=== PATIENT | female | born 1995 | race Caucasian/White ===

== ENCOUNTER → 2016-09-24 | Outpatient (CLI) | payer BC ==
--- OUTSIDE RECORDS SUMMARY | 2016-09-24 15:43 | XMS REPORT | Continuity of Care Document ---
Author Author [facility] Organization [facility] Address Unknown Phone Unavailable Care Team Providers Care Residential Sales Executive Name Role Phone Vicki Castillo PCP [phone] Source Comments Some departments are not documenting in the electronic medical record. If you do not see the information that you expected, contact Release of Information in the Health Information Management department at [phone] for further assistance in locating additional records.[facility] Active Allergies and Adverse Reactions No Known Allergies Current Medications Prescription Sig. Disp. Refills Start End Date Status Date AMOXICILLIN PO Take by mouth. Active cephalexin (KEFLEX) 250 Take 2 Caps by mouth 42 0 05/12/20 Active mg capsule Three Times Daily. 08 Active Problems Not on file Social History Tobacco Use Types Packs/Day Years Used Date Never Smoker Alcohol Use Drinks/Week oz/Week Comments No Last Filed Vital Signs Vital Sign Reading Time Taken Blood Pressure 105/61 05/12/2008 1:52 PM CDT Pulse 68 05/12/2008 1:52 PM CDT Temperature 36.7 C (98.1 F) 05/12/2008 1:52 PM CDT Respiratory Rate - - Height - - Weight 52 kg (114 lb 10.2 oz) 05/12/2008 1:52 PM CDT Body Mass Index - - Oxygen Saturation 99% 05/12/2008 1:52 PM CDT Plan of Care Health Maintenance Due Date Last Done Comments Physical (Comprehensive) 2001 Exam Hpv Vaccines (#1) 2005 Pertussis Vaccine 2005 Tetanus Vaccine 2011 Cervical Cancer Screening 2015 Influenza Vaccine 04/23/2016 Results from Last 3 Months Not on file
[2016-09-24 15:54] LABS: BASOPHILS % (AUTO) 0 % (0-10); EOSINOPHILS # (AUTO) 0.2 10^3/uL (0.0-0.3); EOSINOPHILS % (AUTO) 2 % (0-10); LYMPHOCYTES # (AUTO) 1.9 X 10^3 (1.0-4.0); LYMPHOCYTES % (AUTO) 27 % (12-44); MEAN CORPUSCULAR HEMOGLOBIN 30 PG (25-34); MEAN CORPUSCULAR HGB CONC 33 G/DL (32-36); MEAN CORPUSCULAR VOLUME 92 FL (80-99); MEAN PLATELET VOLUME 11.2 FL (7.4-10.4); MONOCYTES # (AUTO) 0.6 X 10^3 (0.0-1.0); MONOCYTES % (AUTO) 8 % (0-12); NEUTROPHILS # (AUTO) 4.5 X 10^3 (1.8-7.8); NEUTROPHILS % (AUTO) 62 % (42-75); PLATELET COUNT 173 10^3/uL (130-400); RED BLOOD COUNT 4.36 10^6/uL (4.35-5.85); RED CELL DISTRIBUTION WIDTH 12.6 % (10.0-14.5); WHITE BLOOD COUNT 7.1 10^3/uL (4.3-11.0)
[2016-09-24 16:19] LABS: BAND NEUTROPHILS 1 %; BASOPHILS % (MANUAL) 0 %; EOSINOPHILS % (MANUAL) 2 %; LYMPHOCYTES % (MANUAL) 38 %; NEUTROPHILS % (MANUAL) 56 %
[2016-09-24 16:20] LABS: REACTIVE LYMPHOCYTES 1 %
== END ==
LOC: LAB 15:39
PROVIDERS: ATTEND Internal Medicine
DX: D69.6 Thrombocytopenia, unspecified (principal)
CPT/HCPCS: 36415; 85007; 85027

== ENCOUNTER 2018-07-29 07:44 | Emergency (ER) | payer BC, OTHER ==
[~2018-07-29] VITALS: Ht 182.9 cm; Wt 70.3 kg
--- OUTSIDE RECORDS SUMMARY | 2018-07-29 07:50 | XMS REPORT ---
Author Author MARIE CARRILLO [facility] Address [address] [place] [address] Care Team Providers Care Network Systems Administrator Name Role Phone MARIE CARRILLO Unavailable PROBLEMS Unknown Problems ALLERGIES No Information ENCOUNTERS Encounter Location Date Diagnosis [facility] [id number] [address] Aug, Sore throat J02.9 and Nasopharyngitis J00 [facility] [id number] [address] Aug, [facility] [id number] [place] [phone] May, Encounter for immunization Z23 [facility] [id number] [place] [phone] Nov, Encounter for dental examination Z01.20 IMMUNIZATIONS Vaccine Route Administration Date Status FLUARIX QUAD (3 AND UP) 2017 IM Intramuscular Jun 02, 2017 Administered SOCIAL HISTORY Never Assessed REASON FOR VISIT Flu shot PLAN OF CARE VITAL SIGNS MEDICATIONS No Known Medications RESULTS No Results PROCEDURES Procedure Date Ordered Result Body Site FLUARIX QUAD (3 & UP)-[id number] 02, 2017 SINGLE IMMUNIZATION ADMIN Jun 02, 2017 INSTRUCTIONS MEDICATIONS ADMINISTERED No Known Medications
--- OUTSIDE RECORDS SUMMARY | 2018-07-29 07:50 | XMS REPORT ---
Author Author ELLIS MCCOY [facility] Address [address] [place] [address] Care Team Providers Care Roving Frame Tender Name Role Phone ELLIS MCCOY Unavailable PROBLEMS Unknown Problems ALLERGIES No Known Allergies ENCOUNTERS Encounter Location Date Diagnosis [facility] [address] [address] December, Local infection of the skin and subcutaneous tissue, unspecified L08.9 ; Bitten or stung by nonvenomous insect and other nonvenomous arthropods, initial encounter W57.XXXA and Unspecified multiple injuries, initial encounter T07.XXXA [facility] [id number] [place] [phone] Aug, Sore throat J02.9 and Nasopharyngitis J00 [facility] [address] [phone] Aug, [facility] [address] [phone] May, Encounter for immunization Z23 [facility] [address] [phone] Nov, Encounter for dental examination Z01.20 IMMUNIZATIONS No Known Immunizations SOCIAL HISTORY Never Assessed REASON FOR VISIT bug bites on her left ankle and also some on the back of her right thigh. khurram PLAN OF CARE Activity Details Follow Up prn Reason: VITAL SIGNS Height 70 in 2018-01-03 Weight 160.0 lbs 2018-01-03 Temperature 98.0 degrees Fahrenheit 2018-01-03 Heart Rate 80 bpm 2018-01-03 Respiratory Rate 20 2018-01-03 BMI 22.96 kg/m2 2018-01-03 Blood pressure systolic 118 mmHg 2018-01-03 Blood pressure diastolic 72 mmHg 2018-01-03 MEDICATIONS Medication Instructions Dosage Frequency Start Date End Date Duration Status Sprintec 28 Not-Taking Vitamins for Hair Not-Taking Bactrim DS 800-160 MG Orally Twice a day 1 tablet 12h December, 10 days Active RESULTS No Results PROCEDURES No Known procedures INSTRUCTIONS MEDICATIONS ADMINISTERED No Known Medications
--- OUTSIDE RECORDS SUMMARY | 2018-07-29 07:50 | XMS REPORT ---
Author Author MARIE CARRILLO [facility] Address [address] [place] [address] Care Team Providers Care Balancer Name Role Phone MARIE CARRILLO Unavailable PROBLEMS Unknown Problems ALLERGIES No Information ENCOUNTERS Encounter Location Date Diagnosis [facility] [address] [place] [phone] December, Local infection of the skin and subcutaneous tissue, unspecified L08.9 ; Bitten or stung by nonvenomous insect and other nonvenomous arthropods, initial encounter W57.XXXA and Unspecified multiple injuries, initial encounter T07.XXXA [facility] [id number] [place] [address] Aug, Sore throat J02.9 and Nasopharyngitis J00 [facility] [id number] [place] [phone] Aug, [facility] [id number] [place] [phone] May, Encounter for immunization Z23 [facility] [address] [place] [phone] Nov, Encounter for dental examination Z01.20 IMMUNIZATIONS No Known Immunizations SOCIAL HISTORY Never Assessed REASON FOR VISIT Requests return call PLAN OF CARE VITAL SIGNS MEDICATIONS No Known Medications RESULTS No Results PROCEDURES No Known procedures INSTRUCTIONS MEDICATIONS ADMINISTERED No Known Medications
--- OUTSIDE RECORDS SUMMARY | 2018-07-29 07:50 | XMS REPORT ---
Author Author FRANCES WHITTEN [facility] Address [address] [place] [address] Care Team Providers Care Power Hammer Operator Name Role Phone FRANCES WHITETN Unavailable PROBLEMS Unknown Problems ALLERGIES No Known Allergies ENCOUNTERS Encounter Location Date Diagnosis [facility] [id number] [place] [phone] December, Local infection of the skin and subcutaneous tissue, unspecified L08.9 ; Bitten or stung by nonvenomous insect and other nonvenomous arthropods, initial encounter W57.XXXA and Unspecified multiple injuries, initial encounter T07.XXXA [facility] [id number] [place] [phone] Aug, Sore throat J02.9 and Nasopharyngitis J00 [facility] [id number] [place] [phone] Aug, [facility] [address] [phone] May, Encounter for immunization Z23 [facility] [address] [id number] Nov, Encounter for dental examination Z01.20 IMMUNIZATIONS No Known Immunizations SOCIAL HISTORY Never Assessed REASON FOR VISIT sore throat and her voice is fading, slight cough. started getting sick yesterday. karissadeliomartha jen and daughter have both have strep. PLAN OF CARE Activity Details Follow Up prn Reason: VITAL SIGNS Height 70 in 2017-09-16 Weight 160.6 lbs 2017-09-16 Temperature 98.3 degrees Fahrenheit 2017-09-16 Heart Rate 80 bpm 2017-09-16 Respiratory Rate 20 2017-09-16 BMI 23.04 kg/m2 2017-09-16 Blood pressure systolic 112 mmHg 2017-09-16 Blood pressure diastolic 70 mmHg 2017-09-16 MEDICATIONS Medication Instructions Dosage Frequency Start Date End Date Duration Status Vitamins for Hair Not-Taking Sprintec 28 Not-Taking RESULTS Name Result Date Reference Range STREP A (IN HOUSE) 2017-09-16 STREP A negative Control + Lot # [id number] Exp date 2017 PROCEDURES Procedure Date Ordered Result Body Site STREP A ASSAY W/OPTIC Sep 16, 2017 INSTRUCTIONS MEDICATIONS ADMINISTERED No Known Medications
--- OUTSIDE RECORDS SUMMARY | 2018-07-29 07:50 | XMS REPORT ---
Author Author RANDY ROWLEY Organization [facility] Address [address] [place] [address] Care Team Providers Care Solutions Market Consultant Name Role Phone ROWLEY, RANDY Unavailable PROBLEMS Type Condition ICD9-CM Code OXE70-JT Code Onset Dates Condition Status SNOMED Code Problem Seasonal allergies J30.2 Active [id number] ALLERGIES No Known Allergies ENCOUNTERS Encounter Location Date Diagnosis [facility] [address] [phone] Apr, Sore throat J02.9 and Seasonal allergies J30.2 [facility] [address] [address] December, Local infection of the skin and subcutaneous tissue, unspecified L08.9 ; Bitten or stung by nonvenomous insect and other nonvenomous arthropods, initial encounter W57.XXXA and Unspecified multiple injuries, initial encounter T07.XXXA [facility] [id number] [place] [phone] Aug, Sore throat J02.9 and Nasopharyngitis J00 [facility] [id number] [place] [phone] Aug, [facility] [id number] [place] [phone] May, Encounter for immunization Z23 [facility] [address] [id number] Nov, 2015 Encounter for dental examination Z01.20 IMMUNIZATIONS No Known Immunizations SOCIAL HISTORY Never Assessed REASON FOR VISIT sore throat. denies any other symptoms. does want tested for strep. khurram, G1 T0 L0. pt is 5 3/7 gestation PLAN OF CARE Activity Details Follow Up w/ PCP, prn Reason:if symptoms worsen or not improving VITAL SIGNS Height 70 in 2018-05-06 Weight 158.6 lbs 2018-05-06 Temperature 99.0 degrees Fahrenheit 2018-05-06 Heart Rate 84 bpm 2018-05-06 Respiratory Rate 20 2018-05-06 BMI 22.75 kg/m2 2018-05-06 Blood pressure systolic 122 mmHg 2018-05-06 Blood pressure diastolic 70 mmHg 2018-05-06 MEDICATIONS Medication Instructions Dosage Frequency Start Date End Date Duration Status Fluticasone Propionate 50 MCG/ACT Nasally Once a day 1 spray in each nostril 24h Apr, 30 day(s) Active 27-1 MG Orally Once a day 1 tablet 24h 30 day(s) Active RESULTS Name Result Date Reference Range STREP A (IN HOUSE) 2018-05-06 STREP A negative Control + Lot # [id number] Exp date 2018 12 31 PROCEDURES Procedure Date Ordered Result Body Site STREP A ASSAY W/OPTIC May 06, 2018 INSTRUCTIONS MEDICATIONS ADMINISTERED No Known Medications MEDICAL (GENERAL) HISTORY Type Description Date Surgical History left middle finger surgery 1996
[2018-07-29] MEDS ORDERED: FAMOTIDINE 20 MG (PEPCID) TABLET PO STA (08:22)
[2018-07-29] MEDS ORDERED: LIDOCAINE 2% VISCOUS 15 ML UDC PO ONE (08:30)
[2018-07-29] MEDS ORDERED: ANTACID SUSP 30 ML UDC (MYLANTA) PO ONE (08:30)
--- NOTE | 2018-07-29 08:33 | ED Chest Pain ---
General Chief Complaint: Chest Pain Stated Complaint: CP Nursing Triage Note: ARRIVED VIA AMB TO ROOM 05. COMPLAINS OF MID CHEST PAIN THAT RADIATES DOWN BOTH ARMS STARTING LAST NIGHT. PT STATES SHE HAS TAKEN SEVERAL TUMS WITH NO RELIEF. PT STATES SHE IS 17 WEEKS GESTATION. Nursing Sepsis Screen: No Definite Risk Source: patient, spouse Exam Limitations: no limitations History of Present Illness Date Seen by Provider: Jul 29, 2018 Time Seen by Provider: 08:17 Initial Comments Patient presents to ER by private conveyance with her and chief complaint that she's having some tightness in her chest with burning sensation that started yesterday and progressively just gotten worse today. Now she's feeling some sensations of pain going down her shoulder on the left side down to the level of her elbow. She took some Tums yesterday thinking might be acid reflux couple times but it made no difference in her symptoms. She does not have a history of GERD. She is 17 weeks and 4 days with a estimate date of delivery January 02, 2019. She is cared for by Dr. Issa and has a so far uneventful except for a couple of first trimester bleeding episodes that turned out to be nothing serious. She's not having any abdominal pain nausea vomiting diarrhea fevers chills cough. She says when she takes a deep breath and however does cause her chest pain to be worse. She's had the tightness in her chest substernal before but it was usually self-limited episodes and she never taken anything to make it go away lasting just for a few minutes. The burning and persistence are different this time. No primary familial history of any significant medical disease. No personal history of medical disease. She denies diabetes, hypertension, smoking, illicit drug use, hypothyroidism, hypercholesterolemia or any other risk factors for any coronary disease. Allergies and Home Medications Allergies Coded Allergies: No Known Drug Allergies (Unverified , 07/29/18) Patient Home Medication List Home Medication List Reviewed: Yes Review of Systems Review of Systems Constitutional: No chills, No diaphoresis, No fever, No malaise EENTM: No Blurred Vision, No Double Vision Respiratory: Denies Cough, Denies Shortness of Air, Denies Wheezing Cardiovascular: Chest Pain (burning); Denies Edema Gastrointestinal: Denies Abdominal Pain, Denies Constipated, Denies Diarrhea, Denies Nausea, Denies Poor Appetite, Denies Poor Fluid Intake, Denies Vomiting Genitourinary: Denies Burning, Denies Discharge Musculoskeletal: No back pain, No joint pain Skin: No pruritus, No rash Psychiatric/Neurological: Denies Headache, Denies Numbness Past Jhxdrli-Kpxsgo-Wnprpf Hx Patient Social History Alcohol Use: Denies Use Recreational Drug Use: No Smoking Status: Never a Smoker Recent Foreign Travel: No Contact w/Someone Who Travel: No Recent Infectious Disease Expo: No Recent Hopitalizations: No Seasonal Allergies Seasonal Allergies: No Past Medical History Surgeries: Yes Orthopedic Respiratory: No Cardiac: No Neurological: No : Yes Expected Date of Delivery: January 02, 2019 Genitourinary: No Gastrointestinal: No Musculoskeletal: Yes Scoliosis Endocrine: No HEENT: No Cancer: No Psychosocial: No Physical Exam Vital Signs Vital Signs - First Documented 07/29/18 08:10 Temp 97.7 Pulse 78 Resp 16 B/P (MAP) 120/77 (91) Pulse Ox 100 O2 Delivery Room Air Capillary Refill : Less Than 3 Seconds Height, Weight, BMI Height: 6'" Weight: 155lbs. oz. 70.576277kc; BMI Method:Estimated General Appearance: No Apparent Distress, WD/WN HEENT: PERRL/EOMI, Pharynx Normal, Moist Mucous Membranes Neck: Full Range of Motion, Normal Inspection, Non Tender, Supple Respiratory: Chest Non Tender, Lungs Clear, Normal Breath Sounds, No Accessory Muscle Use, No Respiratory Distress Cardiovascular: Regular Rate, Rhythm, No Edema, Normal Peripheral Pulses Gastrointestinal: Normal Bowel Sounds, Non Tender, Soft Neurologic/Psychiatric: Alert, Oriented x3 Progress/Results/Core Measures Results/Orders Lab Results Laboratory Tests Test 07/29/18 08:30 07/29/18 08:34 Range/Units Urine Color YELLOW Urine Clarity VERY CLOUDY H Urine pH 8 5-9 Urine Specific [place] 1.015 L 1.016-1.022 Urine Protein NEGATIVE NEGATIVE Urine Glucose (UA) NEGATIVE NEGATIVE Urine Ketones 1+ H NEGATIVE Urine Nitrite NEGATIVE NEGATIVE Urine Bilirubin NEGATIVE NEGATIVE Urine Urobilinogen NORMAL NORMAL MG/DL Urine Leukocyte Esterase 3+ H NEGATIVE Urine RBC (Auto) NEGATIVE NEGATIVE Urine RBC NONE /HPF Urine WBC 0-2 /HPF Urine Squamous Epithelial Cells 2-5 /HPF Urine Crystals NONE /LPF Urine Amorphous Sediment LARGE DOUG PHOSPHATE H /LPF Urine Bacteria NEGATIVE /HPF Urine Casts NONE /LPF Urine Mucus NEGATIVE /LPF Urine Culture Indicated NO Urine Opiates Screen NEGATIVE NEGATIVE Urine Oxycodone Screen NEGATIVE NEGATIVE Urine Methadone Screen NEGATIVE NEGATIVE Urine Propoxyphene Screen NEGATIVE NEGATIVE Urine Barbiturates Screen NEGATIVE NEGATIVE Ur Tricyclic Antidepressants Screen NEGATIVE NEGATIVE Urine Phencyclidine Screen NEGATIVE NEGATIVE Urine Amphetamines Screen NEGATIVE NEGATIVE Urine Methamphetamines Screen NEGATIVE NEGATIVE Urine Benzodiazepines Screen NEGATIVE NEGATIVE Urine Cocaine Screen NEGATIVE NEGATIVE Urine Cannabinoids Screen NEGATIVE NEGATIVE White Blood Count 11.2 H 4.3-11.0 10^3/uL Red Blood Count 4.22 L 4.35-5.85 10^6/uL Hemoglobin 13.4 11.5-16.0 G/DL Hematocrit 40 35-52 % Mean Corpuscular Volume 94 80-99 FL Mean Corpuscular Hemoglobin 32 25-34 PG Mean Corpuscular Hemoglobin Concent 34 32-36 G/DL Red Cell Distribution Width 13.3 10.0-14.5 % Platelet Count 149 130-400 10^3/uL Mean Platelet Volume 11.0 H 7.4-10.4 FL Neutrophils (%) (Auto) 86 H 42-75 % Lymphocytes (%) (Auto) 9 L 12-44 % Monocytes (%) (Auto) 4 0-12 % Eosinophils (%) (Auto) 0 0-10 % Basophils (%) (Auto) 0 0-10 % Neutrophils # (Auto) 9.7 H 1.8-7.8 X 10^3 Lymphocytes # (Auto) 1.1 1.0-4.0 X 10^3 Monocytes # (Auto) 0.5 0.0-1.0 X 10^3 Eosinophils # (Auto) 0.0 0.0-0.3 10^3/uL Basophils # (Auto) 0.0 0.0-0.1 10^3/uL Neutrophils % (Manual) 91 % Lymphocytes % (Manual) 5 % Monocytes % (Manual) 4 % Eosinophils % (Manual) 0 % Basophils % (Manual) 0 % Band Neutrophils 0 % Blood Morphology Comment NORMAL Sodium Level 136 135-145 MMOL/L Potassium Level 4.0 3.6-5.0 MMOL/L Chloride Level 105 98-107 MMOL/L Carbon Dioxide Level 21 21-32 MMOL/L Anion Gap 10 5-14 MMOL/L Blood Urea Nitrogen 10 7-18 MG/DL Creatinine 0.79 0.60-1.30 MG/DL Estimat Glomerular Filtration Rate > 60 BUN/Creatinine Ratio 13 Glucose Level 91 70-105 MG/DL Calcium Level 9.5 8.5-10.1 MG/DL Corrected Calcium 9.7 8.5-10.1 MG/DL Total Bilirubin 0.6 0.1-1.0 MG/DL Aspartate Amino Transf (AST/SGOT) 18 5-34 U/L Alanine Aminotransferase (ALT/SGPT) 19 0-55 U/L Alkaline Phosphatase 41 40-136 U/L Troponin I < 0.30 <0.30 NG/ML Total Protein 6.8 6.4-8.2 GM/DL Albumin 3.7 3.2-4.5 GM/DL Serum Test, Qualitative POSITIVE NEGATIVE My Orders Orders - DIANA VILLA Cbc With Automated Diff (07/29/18 08:22) Comprehensive Metabolic Panel (07/29/18 08:22) Hcg,Qualitative Serum (07/29/18 08:22) Troponin I (07/29/18 08:22) Lidocaine 2% Viscous 15 Ml (Xylocaine Vi (07/29/18 08:30) Famotidine Tablet (Pepcid Tablet) (07/29/18 08:22) Antacid Suspension (Mylanta Suspension (07/29/18 08:30) Ekg Tracing (07/29/18 08:22) Continuous Ekg Monitoring (07/29/18 08:22) Ua Culture If Indicated (07/29/18 08:35) Drug Screen Stat (Urine) (07/29/18 08:35) Manual Differential (07/29/18 08:34) Medications Given in ED Current Medications Medications Dose Ordered Sig/Reena Route Start Time Stop Time Status Last Admin Dose Admin Al Hydrox/Mg Hydrox/Simethicone 30 ml ONCE ONCE PO 07/29/18 08:30 18 08:31 DC 07/29/18 08:43 30 ML Lidocaine HCl 15 ml ONCE ONCE PO 07/29/18 08:30 07/29/18 08:31 DC 07/29/18 08:43 15 ML Vital Signs/I&O 07/29/18 08:10 Temp 97.7 Pulse 78 Resp 16 B/P (MAP) 120/77 (91) Pulse Ox 100 O2 Delivery Room Air Blood Pressure Mean: 91 Progress Progress Note #1: Time: 08:31 Progress Note GERD of ? We'll start with a GI cocktail before we go to deep and her workup. We will obtain an EKG and some labs. Her pain is worse on deep inspiration so could also be costochondritis. Does not reproduce by pushing on her chest wall though. We'll get a chest x-ray if the GI cocktail doesn't seem to help. We can trial Tylenol as well as with think it's musculoskeletal. She has a normal heart rate in the 60s and 70s with 100% oxygen saturation on room air so pulmonary embolism is fairly unlikely clinically. GI tract would be high on the differential as well as musculoskeletal. Respiratory could also be part of it, pleuritis versus much less likely bronchitis or pneumonia since she's having no cough fevers chills. Cardiac could be less likely since is no familial history or personal history and she does not have any risk factors. Clinically she does not appear to be in volume overload. Progress Note #2: Time: 09:17 Progress Note Symptoms are nearly gone after the GI cocktail. Plan to put her on some Carafate and Pepcid for the next couple weeks and follow up OB provider on the at scheduled appointment. The marginal elevation in the white count is physiologically expected. Initial ECG Impression Date: Jul 29, 2018 Initial ECG Impression Time: 08:34 Initial ECG Rate: 75 Initial ECG Rhythm: Normal Sinus Initial ECG Intervals: Normal Initial ECG Impression: Normal Initial ECG Comparisson: No Previous ECG Available Comment No ST elevation or depression Departure Impression Primary Impression: GERD (gastroesophageal reflux disease) Qualified Codes: K21.9 - Gastro-esophageal reflux disease without esophagitis Disposition: 01 HOME, SELF-CARE Condition: Improved Departure-Patient Inst. Decision time for Depature: 09:18 Referrals: NO,LOCAL PHYSICIAN (PCP/Family) Primary Care Physician Patient Instructions: Acid Reflux (Gastroesophageal Reflux Disease) During Add. Discharge Instructions: You can use Tums, Mylanta, Maalox as needed for breakthrough burning or tightness in her chest. Start using the Carafate half hour before all meals and at bedtime for the next 2 weeks on a scheduled basis. You can also use the Pepcid/Zantac once or twice a day for the next 2-4 weeks. Keep your follow-up appointment with Dr. Issa. If your chest pain becomes unbearable or you start having nausea vomiting or other worrisome symptoms then you may return to the ER sooner for reevaluation. All discharge instructions reviewed with patient and/or family. Voiced understanding. Scripts Sucralfate (Carafate) 1 Gm Tablet 1 GM PO Q6H for 14 Days, #56 TAB 0 Refills Prov: DIANA VILLA 07/29/18 DIANA VILLA Jul 29, 2018 08:33
[2018-07-29 08:41] LABS: BILIRUBIN,URINE NEGATIVE (NEGATIVE); CLARITY,URINE VERY CLOUDY; COLOR,URINE YELLOW; GLUCOSE, URINE (UA) NEGATIVE (NEGATIVE); KETONES,URINE 1+ (NEGATIVE); LEUKOCYTE ESTERASE ,URINE 3+ (NEGATIVE); NITRITE,URINE NEGATIVE (NEGATIVE); PH,URINE 8 (5-9); PROTEIN,URINE NEGATIVE (NEGATIVE); UROBILINOGEN,URINE NORMAL (NORMAL)
[2018-07-29 08:42] LABS: BASOPHILS % (AUTO) 0 % (0-10); EOSINOPHILS % (AUTO) 0 % (0-10); HEMATOCRIT 40 % (35-52); HEMOGLOBIN 13.4 G/DL (11.5-16.0); LYMPHOCYTES # (AUTO) 1.1 X 10^3 (1.0-4.0); LYMPHOCYTES % (AUTO) 9 % (12-44); MEAN CORPUSCULAR HEMOGLOBIN 32 PG (25-34); MEAN CORPUSCULAR HGB CONC 34 G/DL (32-36); MEAN CORPUSCULAR VOLUME 94 FL (80-99); MONOCYTES # (AUTO) 0.5 X 10^3 (0.0-1.0); MONOCYTES % (AUTO) 4 % (0-12); NEUTROPHILS # (AUTO) 9.7 X 10^3 (1.8-7.8); NEUTROPHILS % (AUTO) 86 % (42-75); PLATELET COUNT 149 10^3/uL (130-400); RED BLOOD COUNT 4.22 10^6/uL (4.35-5.85); RED CELL DISTRIBUTION WIDTH 13.3 % (10.0-14.5); WHITE BLOOD COUNT 11.2 10^3/uL (4.3-11.0)
[2018-07-29 08:52] LABS: BACTERIA,URINE NEGATIVE /HPF; WBC,URINE 0-2 /HPF
[2018-07-29 08:57] LABS: AMORPHOUS SEDIMENT,UR LARGE AMOR PHOSPHATE /LPF
[2018-07-29 08:59] LABS: AMPHETAMINE SCREEN, URINE NEGATIVE (NEGATIVE); BARBITURATE SCREEN URINE NEGATIVE (NEGATIVE); BENZODIAZEPINES SCREEN URINE NEGATIVE (NEGATIVE); CANNABINOID SCREEN, URINE NEGATIVE (NEGATIVE); COCAINE SCREEN URINE NEGATIVE (NEGATIVE); METHADONE STAT NEGATIVE (NEGATIVE); METHAMPHETAMINE SCREEN URINE S NEGATIVE (NEGATIVE); OPIATE SCREEN URINE NEGATIVE (NEGATIVE); OXYCODONE STAT NEGATIVE (NEGATIVE); PROPOXYPHENE STAT NEGATIVE (NEGATIVE); TRICYCLIC ANTIDEPRESSANTS SCRE NEGATIVE (NEGATIVE)
[2018-07-29 09:01] LABS: ALANINE AMINOTRANSFERASE 19 U/L (0-55); ALBUMIN 3.7 GM/DL (3.2-4.5); ALKALINE PHOSPHATASE 41 U/L (40-136); BILIRUBIN,TOTAL 0.6 MG/DL (0.1-1.0); BUN/CREATININE RATIO 13; CALCIUM 9.5 MG/DL (8.5-10.1); CARBON DIOXIDE 21 MMOL/L (21-32); CHLORIDE 105 MMOL/L (98-107); CREATININE SERUM 0.79 MG/DL (0.60-1.30); GFR ESTIMATED > 60; GLUCOSE 91 MG/DL (70-105); SODIUM 136 MMOL/L (135-145); TOTAL PROTEIN 6.8 GM/DL (6.4-8.2)
[2018-07-29 09:03] LABS: BAND NEUTROPHILS 0 %; BASOPHILS % (MANUAL) 0 %; EOSINOPHILS % (MANUAL) 0 %; LYMPHOCYTES % (MANUAL) 5 %; MONOCYTES % (MANUAL) 4 %; NEUTROPHILS % (MANUAL) 91 %; RBC MORPH NORMAL
[2018-07-29] MEDS ORDERED: SUCR1TAB36 PO (09:20)
[2018-07-29 09:26] VITALS: BP 106/73
== END 2018-07-29 09:26 | disposition home or self-care (01) ==
LOC: MERGE 07:45 → ER 07:45
DX: O99.612 Diseases of the digestive system complicating pregnancy, second trimester (principal); K21.9 Gastro-esophageal reflux disease without esophagitis; Z3A.17 17 weeks gestation of pregnancy
CPT/HCPCS: 36415; 80053; 80306; 81000; 84484; 84703; 85007; 85027; 93005

== ENCOUNTER → 2018-10-05 | Outpatient (CLI) | payer BC ==
[~2018-10-05] MED LIST: SUCR1TAB36 PO
--- NOTE | 2018-10-05 16:10 | NUR ---
to ws via ambulation for rhogam administration. s/o at side.
--- NOTE | 2018-10-05 16:52 | NUR ---
rhogam administered in left ventro gluteal as ordered.
--- NOTE | 2018-10-05 16:55 | NUR ---
out of WS via ambulation with s/o to home self care via private vehicle.
== END ==
LOC: WSo 16:05
PROVIDERS: ATTEND Obstetrics & Gynecology
DX: Z31.82 Encounter for Rh incompatibility status (principal)
CPT/HCPCS: 96372

== ENCOUNTER 2018-12-10 11:56 | Outpatient (CLI) | payer BC ==
[~2018-12-10] VITALS: Ht 174 cm; Wt 88.9 kg
[2018-12-10] VITALS (8 sets, daily range): BP systolic 99–120; BP diastolic 53–76
--- NOTE | 2018-12-10 12:00 | NUR ---
JAMES FOWLER presented to unit via AMBULATION from ED, accompanied by S/O, with c/o LEAKING FLUID . JAMES FOWLER weighed, gowned, voided, and to bed. EFHM and TOCO applied, VS taken. JAMES FOWLER oriented to bed controls, call light, TV, heat, and A/C controls.
--- NOTE | 2018-12-10 12:05 | NUR ---
INITIAL ASSESSMENT COMPLETED, VSS, SEE INTERVENTIONS FOR DETAILED ASSESSMENTS. PT REPORTS A INCREASE IN VAGINAL DISCHARGE SINCE YESTERDAY. PT REPORTS FLUID IS CLEAR AND REPORTS THAT SHE DID NOT HAVE A GUSH OF FLUID BUT INSTEAD AN INCREASE IN THE AMOUNT OF DISCHARGE SHE WAS HAVING. PT REPORTS HAVING INTERCOURSE THIS AM, BUT DENIES VAGINAL BLEEDING OR REGULAR CONTRACTIONS. PT REPORTS FEELING CONTRACTIONS OFF AND ON FOR LAST COUPLE OF WEEKS BUT REPORTS ONLY ONE CONTRACTION YESTERDAY HAS CAUSED HER ANY PAIN. PLAN OF CARE EXPLAINED TO PT/SO, QUESTIONS ANSWERED. PT VERBALIZES UNDERSTANDING, DENIES NEEDS A THIS TIME, PT DOES PRESENT THIS RN WITH A PLAN SHE WISHES TO FOLLOW IF LABOR IS IMMINENT.
[2018-12-10] MEDS ORDERED: PREN1TAB79 PO (13:00)
[2018-12-10 13:04] LABS: BILIRUBIN,URINE NEGATIVE (NEGATIVE); CLARITY,URINE CLEAR; COLOR,URINE YELLOW; GLUCOSE, URINE (UA) 2+ (NEGATIVE); KETONES,URINE NEGATIVE (NEGATIVE); LEUKOCYTE ESTERASE ,URINE 2+ (NEGATIVE); NITRITE,URINE NEGATIVE (NEGATIVE); PH,URINE 7 (5-9); PROTEIN,URINE 1+ (NEGATIVE); UROBILINOGEN,URINE NORMAL (NORMAL)
[2018-12-10 13:15] LABS: BACTERIA,URINE LARGE /HPF
--- NOTE | 2018-12-10 16:25 | NUR ---
D/C INSTRUCTIONS EXPLAINED TO PT/SO, SIGNED, PT VERBALIZES UNDERSTANDING OR DISCHARGE INSTRUCTIONS AND FOLLOW UP CARE. PT VERBALIZES UNDERSTANDING WHEN TO RETURN TO OB IF NEEDED. NO DISTRESS NOTED.
--- NOTE | 2018-12-10 16:35 | NUR ---
PT DISCHARGED TO HOME, AMBULATED TO PRIVATE CAR WITH S/O AT SIDE, NO DISTRESS NOTED, PT VERBALIZES UNDERSTANDING OF LABOR PRECAUTIONS AND FOLLOW UP CARE WITH DR SLATER.
== END 2018-12-10 16:35 | disposition home or self-care (01) ==
LOC: WSo 11:56 → LDRP 12:00 → WSo 16:35
PROVIDERS: ATTEND Obstetrics & Gynecology
DX: O26.93 Pregnancy related conditions, unspecified, third trimester (principal); Z3A.36 36 weeks gestation of pregnancy
CPT/HCPCS: 81000; 87088; 99213

== ENCOUNTER 2018-12-15 17:22 | Inpatient (IN) | payer BC ==
[~2018-12-15] VITALS: Ht 174 cm; Wt 89.8 kg
[2018-12-15] VITALS (30 sets, daily range): BP systolic 96–136; BP diastolic 48–72
--- NOTE | 2018-12-15 17:20 | NUR ---
JAMES FOWLER Miriam presented to unit via ambulation, accompanied by , for direct admit by Dr. Pt. weighed, gowned, voided, and to bed. EFHM and TOCO applied, VS taken. Pt oriented to bed controls, call light, TV, heat, and A/C controls.
[~2018-12-15 17:22] MED LIST changes: +PREN1TAB79 PO
--- OUTSIDE RECORDS SUMMARY | 2018-12-15 17:31 | XMS REPORT | Clinical Summary ---
Author Author [facility] Organization [facility] Address Unknown Phone Unavailable Care Team Providers Care Lacquerer Name Role Phone Vicki Castillo MD PCP Laila Bello RN Unavailable Unavailable Source Comments Some departments are not documenting in the electronic medical record. If you do not see the information that you expected, contact Release of Information in the Health Information Management department at [phone] for further assistance in locating additional records.[facility] Allergies No Known Allergies Medications End Date Status Medication Sig Dispensed Refills Start Date Active AMOXICILLIN PO Take by 0 mouth. Active cephalexin (KEFLEX) 250 Take 2 Caps 42 0 05/12/200 mg capsule by mouth 8 Three Times Daily. Active Problems Not on file Social History Date Tobacco Use Types Packs/Day Years Used Never Smoker Alcohol Use Drinks/Week oz/Week Comments No Sex Assigned at Date Recorded Not on file Industry Job Start Date Occupation Not on file Not on file Not on file Travel End Travel History Travel Start No recent travel history available. Last Filed Vital Signs Time Taken Vital Sign Reading 05/12/2008 1:52 PM CDT Blood Pressure 105/61 05/12/2008 1:52 PM CDT Pulse 68 05/12/2008 1:52 PM CDT Temperature 36.7 C (98.1 F) - Respiratory Rate - 05/12/2008 1:52 PM CDT Oxygen Saturation 99% - Inhaled Oxygen - Concentration 05/12/2008 1:52 PM CDT Weight 52 kg (114 lb 10.2 oz) - Height - - Body Mass Index - Plan of Treatment Health Maintenance Due Date Last Done Comments PHYSICAL (COMPREHENSIVE) 2001 EXAM HIV SCREENING 2009 HPV VACCINES (1 - Female 2009 3-dose series) DTAP/TDAP VACCINES (1 - 2012 Tdap) CERVICAL CANCER SCREENING 2015 INFLUENZA VACCINE 03/23/2019 Results Not on filefrom Last 3 Months
[2018-12-15] MEDS ORDERED: D5 LR IV SOLUTION 1,000 ML IV ONE (17:34)
[2018-12-15] MEDS ORDERED: D5 LR IV SOLUTION 1,000 ML IV SCH (17:45)
[2018-12-15 17:59] LABS: BILIRUBIN,URINE NEGATIVE (NEGATIVE); CLARITY,URINE CLEAR; COLOR,URINE YELLOW; GLUCOSE, URINE (UA) NEGATIVE (NEGATIVE); KETONES,URINE NEGATIVE (NEGATIVE); LEUKOCYTE ESTERASE ,URINE 2+ (NEGATIVE); NITRITE,URINE NEGATIVE (NEGATIVE); PH,URINE 7 (5-9); PROTEIN,URINE NEGATIVE (NEGATIVE); UROBILINOGEN,URINE NORMAL (NORMAL)
[2018-12-15 18:01] LABS: BASOPHILS % (AUTO) 0 % (0-10); EOSINOPHILS # (AUTO) 0.1 10^3/uL (0.0-0.3); EOSINOPHILS % (AUTO) 1 % (0-10); HEMATOCRIT 39 % (35-52); HEMOGLOBIN 13.2 G/DL (11.5-16.0); LYMPHOCYTES # (AUTO) 1.9 X 10^3 (1.0-4.0); LYMPHOCYTES % (AUTO) 16 % (12-44); MEAN CORPUSCULAR HEMOGLOBIN 33 PG (25-34); MEAN CORPUSCULAR HGB CONC 34 G/DL (32-36); MEAN CORPUSCULAR VOLUME 97 FL (80-99); MEAN PLATELET VOLUME 11.1 FL (7.4-10.4); MONOCYTES # (AUTO) 0.8 X 10^3 (0.0-1.0); MONOCYTES % (AUTO) 7 % (0-12); NEUTROPHILS # (AUTO) 9.4 X 10^3 (1.8-7.8); NEUTROPHILS % (AUTO) 77 % (42-75); PLATELET COUNT 172 10^3/uL (130-400); WHITE BLOOD COUNT 12.2 10^3/uL (4.3-11.0)
[2018-12-15 18:06] LABS: BACTERIA,URINE TRACE /HPF; RBC,URINE RARE /HPF; WBC,URINE 0-2 /HPF
[2018-12-15] MEDS ORDERED: SUFENTA 0.6MCG/ML BUPIVA 0.125 100 ML ONE (19:14)
[2018-12-15] MEDS ORDERED: BUPIVACAINE 0.25% 30 ML (SENSORCAINE) VIAL ONE (19:22)
[2018-12-15] MEDS ORDERED: fentaNYL INJECTION 100 MCG/2 ML AMP ONE (19:22)
--- NOTE | 2018-12-15 19:28 | History & Physical ---
History and Physical Date Seen by Provider: Dec 15, 2018 Time Seen by Provider: 19:23 This patient is a 22-year-old 1 white female with a due date of January 02, 2019 putting her at 37-3/7 weeks' gestation she was seen in my clinic today for routine follow-up and found to be dilated 4+ centimeters. She was having contractions every 2-3 minutes. Over the next 30 reported that minutes she dilated to 5 cm. She denied rupture membranes or bleeding. Her GBS culture at 35 weeks gestation was negative. She's had no problems with this to date. Allergies are none Medications are vitamins and cfor-muc-bzodmmh Prilosec Adequate social and surgical histories are per the antepartum record HEENT exam is normal Neck supple without lymphadenopathy and without thyromegaly Abdomen is gravid soft nontender nondistended Extremities show no clubbing cyanosis. Homans sign. Exam currently shows a cervix 6-7 cm dilated 90+ percent effaced 0+1 station vertex presentation with bulging bag. Amniotomy was performed with release of frankly bloody amniotic fluid. Monitor shows contractions every 2-6 minutes, with occasional variable decelerations, frequent accelerations and better than average variability Laboratory Tests 12/15/18 17:50 White Blood cell count is slightly elevated Assessment and plan 37+ weeks gestation in spontaneous labor. Bloody amniotic fluid on amniotomy is concerning for some degree of placental abruption of the monitor strip is normal and reassuring. Patient is at low station with advanced dilation and I would anticipate delivery within a few hours at most. 37 week gestation with spontaneous labor Allergies and Home Medications Allergies Coded Allergies: No Known Drug Allergies (Unverified , 07/29/18) Home Medications Vit W-Ca,Fe,FA(<1 mg) 1 Each Tablet, 1 TAB PO DAILY, (Reported) Patient Home Medication List Home Medication List Reviewed: Yes YENNY SLATER MD Dec 15, 2018 19:28
[2018-12-15] MEDS ORDERED: OXYC1TAB87 PO (19:30)
[2018-12-15] MEDS ORDERED: DOCU-143 PO (19:30)
[2018-12-15] MEDS ORDERED: IBUP-1780 PO (19:30)
--- NOTE | 2018-12-15 19:31 | Discharge Instructions ---
Discharge Instructions Discharge Medications New, Converted or Re-Newed RX: RX on Chart Patient Instructions Patient Instructions: As directed Return to The Hospital For: As directed Activity & Diet Discharge Diet: No Restrictions Activity as Tolerated: No Orders-Post D/C & Referrals Follow Up Appt: Call to make follow up appt. for patient in 4 weeks. Activity Per routine post vaginal delivery instructions. Diet as tolerated Patient may shower or tub bathe as desired. YENNY SLATER MD Dec 15, 2018 19:31
--- NOTE | 2018-12-15 20:03 | NUR ---
here for epidural placement. Procedure explained, consent reviewed and signed by anesthesia. Questions answered to patient's satisfaction. Time out taken to verify correct patient/procedure. Patient up to side of bed, assisted into sitting position. Betadine prep done x3 and sterile drape applied. Local done, see anesthesia record. Test dose given, see anesthesia record for drug and dosage. Epidural catheter secured in place. Epidural placement complete. Assisted back into bed, monitors adjusted. Epidural dosed, see anesthesia record. Epidural of Sufenta/Bupvicaine @__12____cc/hr stated per pump. Patient tolerated procedure well.
[2018-12-15] MEDS ORDERED: LACTATED RINGERS 1,000 ML IV ONE ×2 (20:13→20:20)
[2018-12-15] MEDS ORDERED: EPIDURAL (SUFENTA 0.6MCG/ML BUPIVA 0.125%) 100 ML BAG EPI SCH (20:15)
[2018-12-15] MEDS ORDERED: ONDANSETRON 4 MG/2 ML (SDV) Z0FRAN IV PRN (20:15)
[2018-12-15] MEDS ORDERED: diphenhydrAMINE 50 MG/ML INJ (BENADRYL) IV PRN (20:15)
[2018-12-15] MEDS ORDERED: CATHETER FLUSH 10 ML SYR IV PRN (20:15)
[2018-12-15] MEDS ORDERED: NALOXONE 0.4 MG/ML 1 ML (NARCAN) VIAL IV PRN (20:15)
[2018-12-15] MEDS ORDERED: LIDOCAINE/EPI 2% 1:200,00 (XYLOCAINE) 10 ML VIAL ONE ×2 (20:20→22:30)
[2018-12-15] MEDS ORDERED: OXYTOCIN/NORMAL SALINE 500 ML IV ONE (20:20)
[2018-12-15] MEDS ORDERED: OXYTOCIN/NORMAL SALINE 500 ML IV SCH (21:13)
[2018-12-15] MEDS: CATHETER FLUSH 10 ML SYR IV SCH (22:00)
[2018-12-15] MEDS ORDERED: METHYLERGONOVINE 0.2 MG/ML (METHERGINE) AMP ONE (23:08)
[2018-12-16] VITALS (8 sets, daily range): BP systolic 95–111; BP diastolic 54–68
[2018-12-16] MEDS ORDERED: OXYTOCIN/NORMAL SALINE 500 ML IV SCH (00:03)
[2018-12-16] MEDS ORDERED: TETANUS,DIPTH,PERTUSS P/F (BOOSTRIX) 0.5 ML VIAL IM ONE (00:15)
[2018-12-16] MEDS ORDERED: oxyCODONE/APAP 5/325MG (PERCOCET 5) TABLET PO PRN (00:15)
[2018-12-16] MEDS ORDERED: WITCH HAZEL(TUCKS) 40 EA JAR TOP PRN (00:15)
[2018-12-16] MEDS ORDERED: MEASLES,MUMPS,RUBELLA 1 EA INJ SQ ONE (00:15)
[2018-12-16] MEDS ORDERED: BENZOCAINE/MENTHOL (DERMOPLAST) 56 ML CAN TP PRN (00:15)
[2018-12-16] MEDS ORDERED: KETOROLAC 30 MG/ML VIAL ONE (00:22)
[2018-12-16] MEDS: KETOROLAC 30 MG/ML VIAL IVP PRN ×2 (00:29→05:51)
[2018-12-16] MEDS ORDERED: METHYLERGONOVINE 0.2 MG/ML (METHERGINE) AMP IM ONE (00:30)
[2018-12-16] MEDS ORDERED: BENZOCAINE/MENTHOL (DERMOPLAST) 56 ML CAN TP ONE (01:31)
[2018-12-16] MEDS ORDERED: WITCH HAZEL(TUCKS) 40 EA JAR ONE (01:31)
--- NOTE | 2018-12-16 01:34 | OPERATIVE REPORT ---
DATE OF SERVICE: 12/15/2018 DELIVERY NOTE The patient delivered by term spontaneous vaginal delivery a viable female infant with Apgars of 8 and 9 at 1 and 5 minutes respectively, weight 7 lbs. 8 oz. Cord blood pH is pending. time is 2255. The infant was delivered over midline episiotomy under epidural analgesia augmented with local in the perineum. The episiotomy was performed when the baby was distending the perineum and there was an adequate room to allow for the delivery. Episiotomy was performed. The patient delivered fairly promptly a vigorous viable female infant with stats as noted above. The infant was bulb suctioned on delivery of the head and nuchal cord was easily released and delivery completed atraumatically. The was bulb suctioned and stimulated and then when the cord was relatively pulseless was doubly clamped, father cut the cord, the baby was passed to mom's abdomen. The placenta delivered fairly spontaneously [place]. It was relatively normal with a 3-vessel cord. There was a marginal abruption of probably between 5 and 10% of the placental surface starting from one margin. There was evident on the placenta. There was almost a battledore placenta and almost a circumvallate placenta. The uterus was massaged. It was somewhat atonic and blood loss was maybe a little bit more than average. She did respond to IV Pitocin and massage to some extent; however, her blood loss continued to add in at around 500 mL blood loss. She was given a dose of Methergine, which had fairly prompt effect liz the uterus nicely and limiting the blood loss. The cervix, vagina, rectum and perineum were examined and found intact except for the midline episiotomy, which was repaired with a single suture of 3-0 Vicryl in the usual manner without difficulty to good hemostasis and good reapproximation. Sponge and needle counts were correct on completion of delivery and the repair. Estimated blood loss was around 550 probably to 600 mL. The patient tolerated the delivery well and remained in the LDR for recovery. The baby remained with the mom. Job ID: [id number] DocumentID: [id number] Dictated Date: 12/15/2018 23:20:40 Ground Systems Engineer Date: 12/16/2018 01:33:36 Dictated By: YENNY SLATER MD [facility] CENTERShahram
--- NOTE | 2018-12-16 02:00 | NUR ---
Pt oriented to PP room, call light within reach, info papers given.
--- NOTE | 2018-12-16 02:30 | NUR ---
Pt sitting in bed holding with at bedside.
--- NOTE | 2018-12-16 05:51 | NUR ---
pt states was up to void around 0500, pt laying in bed holding . FF u/2 light rubra noted.
[2018-12-16] MEDS: IBUPROFEN 800 MG (MOTRIN) TAB PO SCH ×3 (06:23→22:45)
[2018-12-16] MEDS: CATHETER FLUSH 10 ML SYR IV SCH (06:23)
--- NOTE | 2018-12-16 07:30 | Progress Note-Standard ---
Standard Progress Note Progress Notes/Assess & Plan Date Seen by a Provider: Dec 16, 2018 Time Seen by a Provider: 07:28 Progress/Assessment & Plan This patient. She is ambulating, voiding, tolerating oral intake well has good pain control. Patient denies chest pain, denies shortness of breath, denied nausea vomiting, denies headache. Vital Signs 12/16/18 05:50 Temp 98.5 Pulse 68 Resp 16 B/P (MAP) 111/67 (82) Pulse Ox 97 O2 Delivery Room Air Prior signs are stable. Patient is afebrile. Fundus is firm below the umbilicus and nontender. Extremities show no clubbing or cyanosis. There is no Homans sign. There is some pretibial pitting edema that is within normal limits. Assessment and plan day number 1 status post spontaneous vaginal delivery at 37+ weeks gestation. Plan is for routine convalescence and care today and likely discharge home tomorrow YENNY SLATER MD Dec 16, 2018 07:30
--- NOTE | 2018-12-16 07:30 | Anesthesia-Regional Post-Op ---
Regional Patient Condition Mental Status: Alert, Oriented x3 Circulation: Same as Pre-Op Headache: Absent Sensation: Full Recovery Motor Block: Absent Post Op Complications Complications None Follow Up Care/Instructions Patient Instructions None needed. Anesthesia/Patient Condition Patient is doing well, no complaints, stable vital signs, no apparent adverse anesthesia problems. No complications reported per nursing. D/C home per [facility] Criteria: Yes ALEJA SHRESTHA CRNA Dec 16, 2018 07:30
[2018-12-17 02:30] VITALS: BP 104/66
[2018-12-17] MEDS: IBUPROFEN 800 MG (MOTRIN) TAB PO SCH (05:23)
[2018-12-17 07:45] VITALS: BP 97/60
--- NOTE | 2018-12-17 08:30 | NUR ---
DR. SLATER HERE TO SEE PT.
--- NOTE | 2018-12-17 08:33 | Progress Note-Standard ---
Standard Progress Note Progress Notes/Assess & Plan Date Seen by a Provider: Dec 17, 2018 Time Seen by a Provider: 08:32 Progress/Assessment & Plan This patient. She is ambulating, voiding, tolerating oral intake well has good pain control. Patient denies chest pain, denies shortness of breath, denied nausea vomiting, denies headache. Vital Signs 12/16/18 05:50 Temp 98.5 Pulse 68 Resp 16 B/P (MAP) 111/67 (82) Pulse Ox 97 O2 Delivery Room Air Prior signs are stable. Patient is afebrile. Fundus is firm below the umbilicus and nontender. Extremities show no clubbing or cyanosis. There is no Homans sign. There is some pretibial pitting edema that is within normal limits. Assessment and plan day number 1 status post spontaneous vaginal delivery at 37+ weeks gestation. Plan is for routine convalescence and care today and likely discharge home tomorrow December 17, 2018 Patient is without complaint. She is ambulating, voiding, tolerating oral intake well, has good pain control, and is requesting discharge home Vital Signs Date Time Temp Pulse Resp B/P (MAP) Pulse Ox O2 Delivery O2 Flow Rate FiO2 12/17/18 07:45 96.1 66 12 97/60 (72) 97 Room Air 12/17/18 02:30 98.0 77 16 104/66 (79) 98 Room Air 12/16/18 20:15 98.7 89 18 100/67 (78) 100 Room Air 12/16/18 14:40 98.3 78 20 99/68 (78) Room Air Vital signs are stable. Patient is afebrile. The abdomen is benign. The fundus is firm below the umbilicus and nontender. Extremities show no clubbing or cyanosis. There is no Homans sign. Assessment and plan day number 2 status post 37 week spontaneous vaginal delivery doing well. Plans for discharge home with follow-up in clinic Final Diagnosis 37 week spontaneous vaginal delivery YENNY SLATER MD Dec 17, 2018 08:33
[2018-12-17] MEDS ORDERED: DOCUSATE SODIUM 100 MG (COLACE) CAP PO SCH (09:00)
--- NOTE | 2018-12-17 09:12 | NUR ---
PT SITTING UP IN BED, EATING BREAKFAST. WILL RETURN AT A LATER TIME FOR ASSESSMENT.
--- NOTE | 2018-12-17 09:52 | NUR ---
PT VOICES THAT SHE'S ALREADY RECEIVED THE TDAP VACCINATION THROUGH [facility].
--- NOTE | 2018-12-17 09:55 | NUR ---
COLACE GIVEN PO; SEE EMAR FOR FURTHER. INITIAL SHIFT ASSESSMENT COMPLETED; SEE INTERVENTION FOR FURTHER. S/O AT THE BEDSIDE. POC DISCUSSED, PT VERBALIZES UNDERSTANDING AND DENIES ANY NEEDS AT THIS TIME. CALL LIGHT WITHIN REACH.
--- NOTE | 2018-12-17 10:30 | NUR ---
DISCHARGE PAPERS PROVIDED AND REVIEWED WITH PT, PT VERBALIZES UNDERSTANDING AND DENIES ANY QUESTIONS AT THIS TIME. PAPER SIGNED.
--- NOTE | 2018-12-17 12:24 | NUR ---
PT DISCHARGED FROM -[facility] TO [facility] VIA AMBULATORY IN STABLE CONDITION ACC BY S/O AND INFANT.
== END 2018-12-17 12:24 | disposition home or self-care (01) | DRG 806 ==
LOC: LDRP 17:22
PROVIDERS: ADMIT Obstetrics & Gynecology; ATTEND Obstetrics & Gynecology
PROC: 10E0XZZ Delivery of Products of Conception, External Approach (ICD-10-PCS; principal; 2018-12-15)
PROC: 0W8NXZZ Division of Female Perineum, External Approach (ICD-10-PCS; 2018-12-15)
DX: O44.33 Partial placenta previa with hemorrhage, third trimester (principal); O72.1 Other immediate postpartum hemorrhage; O69.81X0 Labor and delivery complicated by cord around neck, without compression, not applicable or unspecified; Z37.0 Single live birth; Z3A.37 37 weeks gestation of pregnancy
CPT/HCPCS: 36415; 81000; 83033; 85025; 86850; 86900; 86901

== ENCOUNTER → 2022-06-19 | Outpatient (CLI) | payer BC, MEDICAID ==
[~2022-06-19] MED LIST changes: +DOCU-143 PO; +IBUP-1780 PO; +OXYC1TAB87 PO
--- NOTE | 2022-06-19 09:25 | Diagnostic Imaging Report ---
INDICATION: Left-sided neck pain TECHNIQUE: Grayscale sonographic images of the thyroid gland. CORRELATION STUDY: None FINDINGS: RIGHT LOBE: 5.1 x 1.3 x 1.5 cm. There is normal echotexture about the right lobe. LEFT LOBE: 4.7 x 1.0 x 1.5 cm. There is normal echotexture about the left lobe. Isthmus appears unremarkable. IMPRESSION: 1. Borderline enlarged thyroid gland, otherwise unremarkable appearing thyroid ultrasound examination. (Normal gland size: 4-5 x 2 x 2 cm) Dictated by: Dictated on workstation # [id number]
== END ==
LOC: RAD 08:32
PROVIDERS: ATTEND Otolaryngology Otolaryngology/Facial Plastic Surgery
DX: E04.9 Nontoxic goiter, unspecified (principal)
CPT/HCPCS: 76536

== ENCOUNTER → 2022-09-18 | Outpatient (CLI) | payer MEDICAID | LOC: CARD 13:06 | PROVIDERS: ATTEND Nurse Practitioner Family | DX: R00.2 Palpitations (principal) | CPT/HCPCS: 93225; 93226 ==